=== PATIENT | male | born 1955 | race Caucasian/White ===

== ENCOUNTER 2017-08-14 14:02 | Observation (INO) | payer MEDICAID, OTHER ==
[~2017-08-14] VITALS: Ht 175.3 cm; Wt 100.0 kg
[2017-08-14] VITALS (9 sets, daily range): BP systolic 104–124; BP diastolic 65–81; PULSE 62–104; RESP 16–18; TEMP 97.6–98.2; O2SAT 98–99
[~2017-08-14 14:02] MED LIST: CLON0.1T PO; HYDR12.57 PO; PAXI40TA PO; SERO100T PO; TRAM50TA PO; TRAZ100 PO
[2017-08-14] MEDS ORDERED: LISI-515 PO (14:23)
[2017-08-14] MEDS ORDERED: SERO300T PO (14:23)
[2017-08-14] MEDS ORDERED: TRAZ100T10 PO (14:23)
[2017-08-14] MEDS ORDERED: SODIUM CHLOR 0.9% 1000 ML INJ 1,000 ML IV ONE (14:49)
[2017-08-14] MEDS ORDERED: SODIUM CHLORIDE 0.9% FLUSH 10 ML FLUSH IVF PRN (15:00)
[2017-08-14 15:35] LABS: BASOPHIL % 0.6 % (0.0-2.0); EOSINOPHIL # 0.2 TH/MM3 (0-0.4); EOSINOPHIL % 2.5 % (0.0-4.0); HEMATOCRIT 41.1 % (39.0-51.0); HEMOGLOBIN 14.1 GM/DL (13.0-17.0); LYMPH % 29.9 % (9.0-44.0); LYMPHOCYTE # 2.4 TH/MM3 (1.0-4.8); MEAN CELL VOLUME 91.8 FL (80.0-100.0); MEAN CORPUSCULAR HEMOGLOBIN 31.6 PG (27.0-34.0); MEAN CORPUSCULAR HGB CONC 34.4 % (32.0-36.0); MEAN PLATELET VOLUME 8.3 FL (7.0-11.0); MONO % 5.2 % (0.0-8.0); MONOCYTE # 0.4 TH/MM3 (0-0.9); NEUT % 61.8 % (16.0-70.0); PLATELET COUNT 230 TH/MM3 (150-450); RED BLOOD COUNT 4.47 MIL/MM3 (4.50-5.90); RED CELL DISTRIBUTION WIDTH 12.6 % (11.6-17.2); WHITE BLOOD COUNT 8.2 TH/MM3 (4.0-11.0)
[2017-08-14 16:03] LABS: BILIRUBIN, URINE NEG (NEG); BLOOD, URINE NEG (NEG); GLUCOSE,URINE NEG (NEG); HYALINE CAST, URINE 19 /lpf (RARE); KETONE, URINE NEG (NEG); MUCUS URINE FEW /lpf (OCC); NITRITE,URINE NEG (NEG); PH, URINE 5.5 (5.0-8.5); SPERM, URINE RARE; URINE COLOR YELLOW (YELLW/STRAW); URINE LEUKOCYTE ESTERASE NEG (NEG)
[2017-08-14 16:08] LABS: ALKALINE PHOSPHATASE 60 U/L (45-117); TOTAL BILIRUBIN ADULT 0.2 MG/DL (0.2-1.0); TOTAL PROTEIN 5.9 GM/DL (6.4-8.2); TROPONIN I LESS THAN 0.02 NG/ML (0.02-0.05)
[2017-08-14 16:14] LABS: ALBUMIN 3.4 GM/DL (3.4-5.0); ALT (GPT) 33 U/L (12-78); AST (GOT) 17 U/L (15-37); BICARBONATE 23.5 MEQ/L (21.0-32.0); BLOOD UREA NITROGEN 17 MG/DL (7-18); CALCIUM 7.6 MG/DL (8.5-10.1); CHLORIDE 108 MEQ/L (98-107); CREATININE 1.13 MG/DL (0.60-1.30); GLOMERULAR FILTRATION RATE 66 ML/MIN (>89); GLUCOSE,RANDOM 185 MG/DL (74-106); SODIUM (NA) 141 MEQ/L (136-145)
--- NOTE | 2017-08-14 18:17 | PD ---
HPI Chief Complaint: Dizziness Time Seen by Provider: 14:23 Travel History International Travel<30 days: No Contact w/Intl Traveler<30days: No Traveled to known affect area: No History of Present Illness HPI This is a 61-year-old male who has a history smoking and hypertension who presents to the emergency department with an episode earlier today where he felt like he was going to pass out. He had pressure in his left chest, constant , lasting for several minutes associated with shortness of breath and diaphoresis. He felt like he was going to pass out. When EMS arrived at his house they took his blood pressure and he was in the 70s systolic. He received some IV hydration with the VAC and then his blood pressure normalized. The patient is in a penitentiary house due to a history of alcoholism. He says he has not drink any alcohol in a year and a half. He says he has not had a stress test 10 years. He does take clonidine for his blood pressure but he took it very early this morning several hours before the onset of his symptoms. His doctors have advised him to have strict blood pressure control because he has a history of aneurysm. PFSH Past Medical History Arthritis: Yes Asthma: Yes Autoimmune Disease: No Anxiety: Yes Depression: Yes Heart Rhythm Problems: Yes (Heart murmur as child) Cancer: No Cardiovascular Problems: Yes High Cholesterol: No Chest Pain: Yes COPD: Yes Cerebrovascular Accident: No Diminished Hearing: No Endocrine: No Gastrointestinal Disorders: Yes Genitourinary: No Headaches: Yes Hepatitis: Yes (HEP C->INTERFERON->REMISSION-2000) Hypertension: Yes Immune Disorder: No Musculoskeletal: Yes Neurologic: Yes Psychiatric: Yes Reproductive: No Respiratory: Yes Immunizations Current: No Migraines: No Seizures: No Tetanus Vaccination: < 5 Years Influenza Vaccination: Yes ?: Not Past Surgical History Joint Replacement: Yes (Total right knee) Neurologic Surgery: Yes (brain surgery repair of Aneurysms as of 03-25-16) Other Surgery: Yes Social History Alcohol Use: No (Quit) Tobacco Use: No (1 pack per day) Substance Use: No Allergies-Medications (Allergen,Severity, Reaction): Coded Allergies: No Known Allergies (Verified Allergy, Unknown, 08/14/17) Reported Meds & Prescriptions Reported Meds & Active Scripts Active Reported Seroquel (Quetiapine Fumarate) 300 Mg Tab 300 Mg PO HS Lisinopril 20 Mg Tab 20 Mg PO DAILY Trazodone (Trazodone HCl) 100 Mg Tablet 100 Mg PO HS Clonidine (Clonidine HCl) 0.1 Mg Tab 0.1 Mg PO DAILY Review of Systems Except as stated in HPI: all other systems reviewed are Neg Physical Exam Narrative GENERAL:Well appearing, no acute distress SKIN: Focused skin assessment warm and dry. HEAD: Atraumatic. Normocephalic. EYES: Pupils equal and round. No injection or drainage. ENT: Moist mucous membranes NECK: Trachea midline. CARDIOVASCULAR: Tachycardic. No murmur appreciated. RESPIRATORY: Clear to auscultation. Breath sounds equal bilaterally. GASTROINTESTINAL: Abdomen soft, non-tender, nondistended. MUSCULOSKELETAL: No obvious deformities. NEUROLOGICAL: Awake and alert. No obvious cranial nerve deficits. Moving all extremities. PSYCHIATRIC: Appropriate mood and affect; insight and judgment normal. Data Data Last Documented VS Vital Signs Date Time Temp Pulse Resp B/P (MAP) Pulse Ox O2 Delivery O2 Flow Rate FiO2 08/14/17 18:23 97.7 71 18 104/75 (85) 98 Nasal Cannula 2.00 Orders Orders Electrocardiogram (08/14/17 14:49) Complete Blood Count With Diff (08/14/17 14:49) Comprehensive Metabolic Panel (08/14/17 14:49) Troponin I (08/14/17 14:49) Urinalysis - C+S If Indicated (08/14/17 14:49) Ecg Monitoring (08/14/17 14:49) Iv Access Insert/Monitor (08/14/17 14:49) Oximetry (08/14/17 14:49) Sodium Chloride 0.9% Flush (Ns Flush) (08/14/17 15:00) Sodium Chlor 0.9% 1000 Ml Inj (Ns 1000 M (08/14/17 14:49) Thyroid Stimulating Hormone (08/14/17 14:49) Troponin I (08/14/17 17:15) Chest, Single Ap (08/14/17 ) Aspirin Chew (Aspirin Chew) (08/14/17 18:30) Admit Order (Ed Use Only) (08/14/17 18:47) Labs Laboratory Tests Test 08/14/17 14:15 08/14/17 15:35 08/14/17 17:15 White Blood Count 8.2 TH/MM3 Red Blood Count 4.47 MIL/MM3 Hemoglobin 14.1 GM/DL Hematocrit 41.1 % Mean Corpuscular Volume 91.8 FL Mean Corpuscular Hemoglobin 31.6 PG Mean Corpuscular Hemoglobin Concent 34.4 % Red Cell Distribution Width 12.6 % Platelet Count 230 TH/MM3 Mean Platelet Volume 8.3 FL Neutrophils (%) (Auto) 61.8 % Lymphocytes (%) (Auto) 29.9 % Monocytes (%) (Auto) 5.2 % Eosinophils (%) (Auto) 2.5 % Basophils (%) (Auto) 0.6 % Neutrophils # (Auto) 5.0 TH/MM3 Lymphocytes # (Auto) 2.4 TH/MM3 Monocytes # (Auto) 0.4 TH/MM3 Eosinophils # (Auto) 0.2 TH/MM3 Basophils # (Auto) 0.0 TH/MM3 CBC Comment DIFF FINAL Differential Comment Blood Urea Nitrogen 17 MG/DL Creatinine 1.13 MG/DL Random Glucose 185 MG/DL Total Protein 5.9 GM/DL Albumin 3.4 GM/DL Calcium Level 7.6 MG/DL Alkaline Phosphatase 60 U/L Aspartate Amino Transf (AST/SGOT) 17 U/L Alanine Aminotransferase (ALT/SGPT) 33 U/L Total Bilirubin 0.2 MG/DL Sodium Level 141 MEQ/L Potassium Level 3.3 MEQ/L Chloride Level 108 MEQ/L Carbon Dioxide Level 23.5 MEQ/L Anion Gap 10 MEQ/L Estimat Glomerular Filtration Rate 66 ML/MIN Troponin I LESS THAN 0.02 NG/ML 0.06 NG/ML Thyroid Stimulating Hormone 3rd Gen 1.820 uIU/ML Urine Color YELLOW Urine Turbidity CLEAR Urine pH 5.5 Urine Specific [place] 1.013 Urine Protein NEG mg/dL Urine Glucose (UA) NEG mg/dL Urine Ketones NEG mg/dL Urine Occult Blood NEG Urine Nitrite NEG Urine Bilirubin NEG Urine Urobilinogen LESS THAN 2.0 MG/DL Urine Leukocyte Esterase NEG Urine RBC 3 /hpf Urine WBC 1 /hpf Urine Hyaline Casts 19 /lpf Urine Mucus FEW /lpf Urine Sperm RARE Microscopic Urinalysis Comment CULT NOT INDICATED MDM Medical Decision Making Medical Screen Exam Complete: Yes Emergency Medical Condition: Yes Interpretation(s) ekg: sinus tachycardia, q waves in the inferior leads No leukocytosis mild hypokalemia troponin increased from .02 to .06 Differential Diagnosis Acute coronary syndrome, dehydration, vasovagal syncope, orthostatic hypotension , arrhythmia Narrative Course This is a 61-year-old male who presents to the emergency department with lightheadedness and chest pain that started prior to arrival. He was placed on a monitor and an IV was established. EKG demonstrates some Q waves in the inferior leads. Labs demonstrate an initial troponin of 0.02 which increased on repeat to .06. I think patient requires observation for serial cardiac enzymes as his description of his symptoms is concerning for acute coronary syndrome. Physician Communication Physician Communication Discussed with Dr. Tello Diagnosis Primary Impression: Chest pain Qualified Codes: R07.9 - Chest pain, unspecified Admitting Information Admitting Physician Requests: Observation Honey Huynh MD Aug 14, 2017 18:17
[2017-08-14] MEDS ORDERED: ASPIRIN 81 MG CHEW TAB CHEW ONE (18:30)
[2017-08-14] MEDS ORDERED: IOHEXOL 350 MG/ML 100 ML BTL (for Cath Lab) OTHER ONE (18:50)
--- NOTE | 2017-08-14 18:54 | RADRPT ---
EXAM DATE/TIME: 08/14/2017 18:31 [facility] COMPARISON: CHEST SINGLE AP, March 26, 2016, 13:59. INDICATIONS : Chest pain started at 11 am. MEDICAL HISTORY : Aneurysm, intracranial. Cardiovascular disease Hypertension.Hep C COPD SURGICAL HISTORY : Craniotomy. Total knee replacement, left.Anuersym clipping. ENCOUNTER: Initial ACUITY: 1 day PAIN SCORE: 1/10 LOCATION: Bilateral chest FINDINGS: A single view of the chest demonstrates the lungs to be symmetrically aerated without evidence of mas s, infiltrate or effusion. The cardiomediastinal contours are unremarkable. Osseous structures are intact. CONCLUSION: No acute disease. Howie Isaebl Jr., MD on August 14, 2017 at 18:51 Board Certified Radiologist. This report was verified electronically.
[2017-08-14] MEDS ORDERED: ONDANSETRON HCL 4 MG/2 ML VIAL IVP PRN (19:00)
[2017-08-14] MEDS ORDERED: BISACODYL 10 MG SUPP RECTAL PRN (19:00)
[2017-08-14] MEDS ORDERED: ACETAMINOPHEN 325 MG TAB PO PRN (19:00)
[2017-08-14] MEDS ORDERED: MAGNESIUM HYDROXIDE SUSP 30 ML CUP PO PRN (19:00)
[2017-08-14] MEDS ORDERED: LACTULOSE SYRUP 20 GM/30 ML CUP PO PRN (19:00)
[2017-08-14] MEDS ORDERED: NITROGLYCERIN 2% OINT 1 GM PACKET TOPICAL PRN (19:00)
[2017-08-14] MEDS ORDERED: SODIUM CHLORIDE 0.9% FLUSH 10 ML FLUSH IV FLUSH PRN (19:00)
[2017-08-14] MEDS ORDERED: MORPHINE SULFATE 2 MG/ML INJ IV PUSH PRN (19:00)
[2017-08-14] MEDS ORDERED: SENNOSIDES 8.6 MG TAB PO PRN (19:00)
--- NOTE | 2017-08-14 19:03 | HHI.HP ---
[facility] Service [facility] Primary Care Physician No Primary Care Physician Admission Diagnosis chest pain Diagnoses: (1) Near syncope Diagnosis: Principal (2) Hypotension Diagnosis: Principal (3) Elevated troponin Diagnosis: Principal (4) Hypokalemia Diagnosis: Principal (5) Tobacco abuse Diagnosis: Principal Travel History International Travel<30 Days: No Contact w/Intl Traveler <30 Da: No Traveled to Known Affected Are: No History of Present Illness This is a 61-year-old male with a PMH of Anxiety, Depression, HTN, Hyperlipidemia, Hepatitis C, h/o Cerebral Aneurysm s/p Clipping, h/o Alcohol Abuse in Remission and Tobacco Abuse who was brought to the ER after near syncopal event. Pt states he was having lunch when he had sudden episode of intense lightheadedness/dizziness followed by near syncopal event. No h/o similar symptoms. BP 70's systolic upon EMS arrival w/ improvement after IVF. Per pt he lives in a detention house w/ 7 other residents who have all been sick lately w/ cold-type symptoms. Denies fever, chills, cough or chest pain. On arrival, BP 118/76, HR 104, O2 sat 98% on 2L NC, Afebrile. CBC essentially unremarkable. K+ 3.3. GFR 66. Troponin 0.02, repeat troponin 0.06. No complaints of chest pain. UA negative. CXR with no acute findings. Review of Systems Except as stated in HPI: all other systems reviewed are Neg ROS: 14 point review of systems otherwise negative. Past Family Social History Past Medical History PMH: Anxiety, Depression, HTN, Hyperlipidemia, Hepatitis C, h/o Cerebral Aneurysm s/p Clipping, h/o Alcohol Abuse in Remission and Tobacco Abuse Past Surgical History PAST SURGICAL HISTORY: Total Knee Replacement, Cerebral Aneurysm Clips Allergies: Coded Allergies: No Known Allergies (Verified Allergy, Unknown, 08/14/17) Family History PAST FAMILY HISTORY: Reviewed. No h/o DM or CAD Social History PAST SOCIAL HISTORY: History of alcohol abuse, sober for 8 years. Smokes 1ppd. Negative for drugs. Physical Exam Vital Signs Vital Signs Date Time Temp Pulse Resp B/P (MAP) Pulse Ox O2 Delivery O2 Flow Rate FiO2 08/14/17 18:55 71 18 118/81 (93) 98 Nasal Cannula 2.00 08/14/17 18:23 97.7 71 18 104/75 (85) 98 Nasal Cannula 2.00 08/14/17 17:16 97.8 87 16 105/65 (78) 98 Nasal Cannula 2.00 08/14/17 16:13 98.0 100 17 124/73 (90) 99 Nasal Cannula 2.00 08/14/17 14:51 18 98 Nasal Cannula 2.00 08/14/17 14:24 108 18 98 Nasal Cannula 2.00 08/14/17 14:20 98.2 104 18 118/76 (90) 98 Nasal Cannula 2.00 Physical Exam PE: GENERAL: Very pleasant middle-aged white male in no acute distress. HEENT: PERRLA, EOMI. No scleral icterus or conjunctival pallor. No lid lag or facial droop. CARDIOVASCULAR: Regular rate and rhythm. No obvious murmurs to auscultation. No chest tenderness to palpation. RESPIRATORY: No obvious rhonchi or wheezing. Clear to auscultation. Breath sounds equal bilaterally. GASTROINTESTINAL: Abdomen soft, non-tender, nondistended. BS normal. MUSCULOSKELETAL: Extremities without clubbing, cyanosis, or edema. No obvious deformities. NEUROLOGICAL: Awake, alert and oriented x4. No focal neurologic deficits. Moving both upper and lower extremities spontaneously. Laboratory Laboratory Tests Test 08/14/17 14:15 08/14/17 15:35 08/14/17 17:15 White Blood Count 8.2 Red Blood Count 4.47 Hemoglobin 14.1 Hematocrit 41.1 Mean Corpuscular Volume 91.8 Mean Corpuscular Hemoglobin 31.6 Mean Corpuscular Hemoglobin Concent 34.4 Red Cell Distribution Width 12.6 Platelet Count 230 Mean Platelet Volume 8.3 Neutrophils (%) (Auto) 61.8 Lymphocytes (%) (Auto) 29.9 Monocytes (%) (Auto) 5.2 Eosinophils (%) (Auto) 2.5 Basophils (%) (Auto) 0.6 Neutrophils # (Auto) 5.0 Lymphocytes # (Auto) 2.4 Monocytes # (Auto) 0.4 Eosinophils # (Auto) 0.2 Basophils # (Auto) 0.0 CBC Comment DIFF FINAL Differential Comment Blood Urea Nitrogen 17 Creatinine 1.13 Random Glucose 185 Total Protein 5.9 Albumin 3.4 Calcium Level 7.6 Alkaline Phosphatase 60 Aspartate Amino Transf (AST/SGOT) 17 Alanine Aminotransferase (ALT/SGPT) 33 Total Bilirubin 0.2 Sodium Level 141 Potassium Level 3.3 Chloride Level 108 Carbon Dioxide Level 23.5 Anion Gap 10 Estimat Glomerular Filtration Rate 66 Troponin I LESS THAN 0.02 0.06 Thyroid Stimulating Hormone 3rd Gen 1.820 Urine Color YELLOW Urine Turbidity CLEAR Urine pH 5.5 Urine Specific [place] 1.013 Urine Protein NEG Urine Glucose (UA) NEG Urine Ketones NEG Urine Occult Blood NEG Urine Nitrite NEG Urine Bilirubin NEG Urine Urobilinogen LESS THAN 2.0 Urine Leukocyte Esterase NEG Urine RBC 3 Urine WBC 1 Urine Hyaline Casts 19 Urine Mucus FEW Urine Sperm RARE Microscopic Urinalysis Comment CULT NOT INDICATED Result Diagram: 08/14/17 1415 08/14/17 1415 Caprini VTE Risk Assessment Caprini VTE Risk Assessment: No/Low Risk (score <= 1) Caprini Risk Assessment Model Point Value = 1 Point Value = 2 Point Value = 3 Point Value = 5 Age 41-60 Minor surgery BMI > 25 kg/m2 Swollen legs Varicose veins or History of unexplained or recurrent spontaneous Oral contraceptives or hormone replacement Sepsis (< 1 month) Serious lung disease, including pneumonia (< 1 month) Abnormal pulmonary function Acute myocardial infarction Congestive heart failure (< 1 month) History of inflammatory bowel disease Medical patient at bed rest Age 61-74 Arthroscopic surgery Major open surgery (> 45 min) Laparoscopic surgery (> 45 min) Malignancy Confined to bed (> 72 hours) Immobilizing plaster cast Central venous access Age >= 75 History of VTE Family history of VTE Factor V Leiden Prothrombin [id number] Lupus anticoagulant Anticardiolipin antibodies Elevated serum homocysteine Heparin-induced thrombocytopenia Other congenital or acquired thrombophilia Stroke (< 1 month) Elective arthroplasty Hip, pelvis, or leg fracture Acute spinal cord injury (< 1 month) Prophylaxis Regimen Total Risk Factor Score Risk Level Prophylaxis Regimen 0-1 Low Early ambulation 2 Moderate Order ONE of the following: *Sequential Compression Device (SCD) *Heparin 5000 units SQ BID 3-4 Higher Order ONE of the following medications: *Heparin 5000 units SQ TID *Enoxaparin/Lovenox 40 mg SQ daily (WT < 150 kg, CrCl > 30 mL/min) *Enoxaparin/Lovenox 30 mg SQ daily (WT < 150 kg, CrCl > 10-29 mL/min) *Enoxaparin/Lovenox 30 mg SQ BID (WT < 150 kg, CrCl > 30 mL/min) AND/OR *Sequential Compression Device (SCD) 5 or more Highest Order ONE of the following medications: *Heparin 5000 units SQ TID (Preferred with Epidurals) *Enoxaparin/Lovenox 40 mg SQ daily (WT < 150 kg, CrCl > 30 mL/min) *Enoxaparin/Lovenox 30 mg SQ daily (WT < 150 kg, CrCl > 10-29 mL/min) *Enoxaparin/Lovenox 30 mg SQ BID (WT < 150 kg, CrCl > 30 mL/min) AND *Sequential Compression Device (SCD) Assessment and Plan Problem List: (1) Near syncope ICD Code: R55 - Syncope and collapse (2) Hypotension ICD Code: I95.9 - Hypotension, unspecified (3) Elevated troponin ICD Code: R74.8 - Abnormal levels of other serum enzymes (4) Hypokalemia ICD Code: E87.6 - Hypokalemia (5) Tobacco abuse ICD Code: Z72.0 - Tobacco use Assessment and Plan A/P: 1. Near Syncope: Likely secondary to dehydration/hypovolemia. Admit for observation, place on telemetry, IVF for hydration, R/o ACS to eval for possible underlying ischemia. Check Echo to eval for valvular abnormality/ cardiomyopathy. 2. Hypotension: BP 70's upon EMS arrival, likely secondary to dehydration, s/ p IVF w/ improvement, BP currently 104/75, HR 71. Monitor BP closely. Hold home antihypertensives at this time, will resume once BP stable. 3. Elevated Trop: Initial trop 0.02, repeat trop elevated to 0.06. Possibly due to demand ischemia from hypotension. No c/o chest pain. EKG w/ no acute ischemia. R/o ACS. Start ASA, Statin, hold B-gregoria in light of hypotension. Consult Cardiology for further recommendations. CXR w/ no acute findings, images reviewed by me. 4. Hypokalemia: K+ 3.3, will replace w/ 40mEq K+, recheck labs in am. 5. Tobacco Abuse: Pt counselled. Ativan prn. No NicoDerm to avoid vasoconstriction. 6. DVT Prophylaxis: SCD/Teds. 7. Social work for d/c planning as needed. 8. Labs/records/imaging reviewed by me. Case discussed at length w/ day physician. Sanjuanita Brian MD Aug 14, 2017 19:03
[2017-08-14] MEDS: SODIUM CHLOR 0.9% 1000 ML INJ 1,000 ML IV SCH (19:24)
[2017-08-14] MEDS ORDERED: POTASSIUM CHLORIDE 20 MEQ CONTROLLED RELEASE TAB PO ONE (19:45)
[2017-08-14] MEDS ORDERED: LORazepam 1 MG TAB PO PRN (20:15)
[2017-08-14] MEDS: SODIUM CHLORIDE 0.9% FLUSH 10 ML FLUSH IV FLUSH SCH (21:00)
[2017-08-14] MEDS: DOCUSATE SODIUM 50 MG/SENNA 8.6 MG TAB PO SCH (21:00)
[2017-08-14] MEDS: QUEtiapine FUMARATE 300 MG TAB PO SCH (23:49)
[2017-08-14] MEDS: traZODone HCL 100 MG TAB PO SCH (23:50)
[2017-08-15] VITALS (11 sets, daily range): BP systolic 100–139; BP diastolic 62–89; PULSE 56–75; RESP 17–20; TEMP 97.6–98.3; O2SAT 95–97
[2017-08-15] MEDS: SODIUM CHLOR 0.9% 1000 ML INJ 1,000 ML IV SCH ×2 (05:57→15:00)
[2017-08-15] MEDS ORDERED: DEXTROSE 50% IN WATER 50 ML VIAL(D50) IV PUSH PRN (07:45)
[2017-08-15] MEDS ORDERED: GLUCAGON 1 MG/ML VIAL OTHER PRN (07:45)
[2017-08-15] MEDS: INSULIN ASPART SUPPLEMENTAL SCALE SQ SCH ×4 (08:00→21:00)
[2017-08-15 08:48] LABS: AUTOMATED NEUTROPHIL # 6.6 TH/MM3 (1.8-7.7); BASOPHIL # 0.1 TH/MM3 (0-0.2); BASOPHIL % 0.6 % (0.0-2.0); EOSINOPHIL # 0.2 TH/MM3 (0-0.4); EOSINOPHIL % 2.4 % (0.0-4.0); HEMATOCRIT 42.4 % (39.0-51.0); HEMOGLOBIN 14.9 GM/DL (13.0-17.0); LYMPH % 21.3 % (9.0-44.0); MEAN CELL VOLUME 92.9 FL (80.0-100.0); MEAN CORPUSCULAR HEMOGLOBIN 32.6 PG (27.0-34.0); MEAN CORPUSCULAR HGB CONC 35.1 % (32.0-36.0); MEAN PLATELET VOLUME 8.6 FL (7.0-11.0); MONO % 6.8 % (0.0-8.0); MONOCYTE # 0.7 TH/MM3 (0-0.9); NEUT % 68.9 % (16.0-70.0); PLATELET COUNT 267 TH/MM3 (150-450); RED BLOOD COUNT 4.57 MIL/MM3 (4.50-5.90); RED CELL DISTRIBUTION WIDTH 12.6 % (11.6-17.2); WHITE BLOOD COUNT 9.6 TH/MM3 (4.0-11.0)
[2017-08-15 09:11] LABS: ALBUMIN 3.6 GM/DL (3.4-5.0); ALKALINE PHOSPHATASE 62 U/L (45-117); ALT (GPT) 31 U/L (12-78); AST (GOT) 19 U/L (15-37); BICARBONATE 22.7 MEQ/L (21.0-32.0); BLOOD UREA NITROGEN 13 MG/DL (7-18); CALCIUM 8.5 MG/DL (8.5-10.1); CHLORIDE 112 MEQ/L (98-107); CHOLESTEROL 203 MG/DL (120-200); CHOLESTEROL/ HDL RATIO 6.59 RATIO; CREATININE 0.97 MG/DL (0.60-1.30); GLOMERULAR FILTRATION RATE 79 ML/MIN (>89); GLUCOSE,RANDOM 90 MG/DL (74-106); HDL CHOLESTEROL 30.8 MG/DL (40.0-60.0); LDL CHOLESTEROL 123 MG/DL (0-99); SODIUM (NA) 142 MEQ/L (136-145); TOTAL BILIRUBIN ADULT 0.3 MG/DL (0.2-1.0); TOTAL PROTEIN 6.2 GM/DL (6.4-8.2); TRIGLYCERIDES 244 MG/DL (42-150); TROPONIN I LESS THAN 0.02 NG/ML (0.02-0.05)
--- NOTE | 2017-08-15 09:42 | HHI.PR ---
Subjective Remarks Patient in nad. No n/v/d/c. Denies chest pain or sob. no lightheadedness, sob palpitations, diaphoresis. Plan for stress test Objective Vitals Vital Signs Date Time Temp Pulse Resp B/P (MAP) Pulse Ox O2 Delivery O2 Flow Rate FiO2 08/15/17 08:00 98.3 71 20 122/83 (96) 95 123/80 (94) 125/85 (98) 08/15/17 04:00 68 08/15/17 03:33 98.1 58 17 100/62 (75) 95 08/15/17 00:29 60 08/14/17 23:04 62 08/14/17 22:52 97.6 76 16 109/78 (88) 98 08/14/17 20:29 98.1 66 16 120/79 (93) 99 08/14/17 20:25 08/14/17 18:55 71 18 118/81 (93) 98 Nasal Cannula 2.00 08/14/17 18:23 97.7 71 18 104/75 (85) 98 Nasal Cannula 2.00 08/14/17 17:16 97.8 87 16 105/65 (78) 98 Nasal Cannula 2.00 08/14/17 16:13 98.0 100 17 124/73 (90) 99 Nasal Cannula 2.00 08/14/17 14:51 18 98 Nasal Cannula 2.00 08/14/17 14:24 108 18 98 Nasal Cannula 2.00 08/14/17 14:20 98.2 104 18 118/76 (90) 98 Nasal Cannula 2.00 I/O 08/14/17 08/14/17 08/14/17 08/15/17 08/15/17 08/15/17 07:00 15:00 23:00 07:00 15:00 23:00 Intake Total 1000 ml Output Total 1100 ml 500 ml Balance -100 ml -500 ml Intake IV Total 1000 ml Output Urine Total 1100 ml 500 ml # Voids 2 1 # Bowel Movements 0 Result Diagram: 08/15/17 0735 08/15/17 0735 Imaging Last Impressions Chest X-Ray 08/14/17 0000 Signed Impressions: Service Date/Time: Monday, August 14, 2017 18:31 - CONCLUSION: No acute disease. Howie Isabel Jr., MD Objective Remarks GENERAL: Very pleasant middle-aged white male in no acute distress. CARDIOVASCULAR: Regular rate and rhythm. No obvious murmurs to auscultation. No chest tenderness to palpation. RESPIRATORY: No obvious rhonchi or wheezing. Clear to auscultation. Breath sounds equal bilaterally. GASTROINTESTINAL: Abdomen soft, non-tender, nondistended. BS normal. MUSCULOSKELETAL: Extremities without clubbing, cyanosis, or edema. No obvious deformities. NEUROLOGICAL: Awake, alert and oriented x4. No focal neurologic deficits. Moving both upper and lower extremities spontaneously. A/P Problem List: (1) Near syncope ICD Code: R55 - Syncope and collapse (2) Hypotension ICD Code: I95.9 - Hypotension, unspecified (3) Elevated troponin ICD Code: R74.8 - Abnormal levels of other serum enzymes (4) Hypokalemia ICD Code: E87.6 - Hypokalemia (5) Tobacco abuse ICD Code: Z72.0 - Tobacco use Assessment and Plan Near Syncope: Likely secondary to dehydration/hypovolemia. Admit for observation, place on telemetry, IVF for hydration, R/o ACS to eval for possible underlying ischemia. Carotid US normal. Echo normal EF, no valvulopathy Hypotension on admission: BP 70's upon EMS arrival, likely secondary to dehydration, s/p IVF w/ improvement, BP currently 104/75, HR 71. Monitor BP closely. Hold home antihypertensives at this time, will resume once BP stable. Elevated Trop: Initial trop 0.02, repeat trop elevated to 0.06. Trending down 0.04--> 0.02. Possibly due to demand ischemia from hypotension. No c/o chest pain. EKG w/ no acute ischemia. R/o ACS. Start ASA, Statin, hold B-gregoria in light of hypotension. Consult Cardiology , appreciate recommendations. CXR w/ no acute findings, images reviewed by me. Stress test reviewed with LAD territory ischemia , cardiology ff 2D ECHO with normal EF 60% Hypokalemia: K+ 3.3, will replace w/ 40mEq K+, recheck labs in am. Tobacco Abuse: Pt counselled. Ativan prn. No NicoDerm to avoid vasoconstriction. DVT Prophylaxis: SCD/Teds. CM consulted for d/c planning as needed. Stress test reviewed with LAD territory ischemia , cardiology ff Yen Watkins MD Aug 15, 2017 09:42
[2017-08-15] MEDS: DOCUSATE SODIUM 50 MG/SENNA 8.6 MG TAB PO SCH ×2 (09:53→21:00)
[2017-08-15] MEDS: SODIUM CHLORIDE 0.9% FLUSH 10 ML FLUSH IV FLUSH SCH ×2 (09:53→21:00)
[2017-08-15] MEDS: ASPIRIN EC 81 MG TABEC PO SCH (09:53)
[2017-08-15] MEDS: PRAVASTATIN SOD 40 MG TAB PO SCH (09:53)
[2017-08-15] MEDS ORDERED: PNEUMOCOCCAL POLYVALENT INJ 25 MCG/0.5 ML SYR IM ONE (10:00)
--- NOTE | 2017-08-15 10:03 | RADRPT ---
EXAM DATE/TIME: 08/15/2017 08:36 [facility] COMPARISON: No previous studies available for comparison. INDICATIONS : Syncope. MEDICAL HISTORY : Hypertension. Chronic obstructive pulmonary disease. Arthritis. Asthma. Osteoporosis. Liver disease. Hepatitis C. SURGICAL HISTORY : Total knee replacement, right. Aneurysm repair. ENCOUNTER: Initial ACUITY: 1 day PAIN SCORE: 2/10 LOCATION: Bilateral neck PEAK SYSTOLIC VELOCITIES (cm/sec): ICA/CCA RATIO: Right: 1.7 Left: 1.1 ICA: Right: 124 Left: 115 CCA: Right: 74 Left: 108 ECA: Right: 119 Left: 94 VERTEBRAL: Right: 62 antegrade Left: Not visualized. absent Elevated flow velocities and ICA/CCA ratios have been found to correlate with increased degrees of vessel stenosis, calculated as percentage of diameter relative to a normal segment of distal ICA/CCA FINDINGS: RIGHT CAROTID: No significant stenosis is visualized. The waveforms are within normal limits. LEFT CAROTID: No significant stenosis is visualized. The waveforms are within normal limits. VERTEBRAL ARTERIES: Antegrade flow is seen in both vertebral arteries. MISCELLANEOUS: None. CONCLUSION: The left vertebral artery is not visualized may be hypoplastic and otherwise unremarkable. Ron Martino MD on August 15, 2017 at 9:58 Board Certified Radiologist. This report was verified electronically.
--- NOTE | 2017-08-15 10:24 | RADRPT ---
EXAM DATE/TIME: 08/15/2017 10:11 [facility] COMPARISON: CT BRAIN W/O CONTRAST, April 23, 2016, 18:29. INDICATIONS : Dizziness and headache for two days. RADIATION DOSE: 41.41 CTDIvol (mGy) MEDICAL HISTORY : Aneurysm, intracranial. Hypertension. Cardiovascular disease SURGICAL HISTORY : Intracranial aneurysm repair. ENCOUNTER: Initial ACUITY: 2 days PAIN SCALE: 4/10 LOCATION: Bilateral cranial TECHNIQUE: Multiple contiguous axial images were obtained of the head. Using automated exposure control and adj ustment of the mA and/or kV according to patient size, radiation dose was kept as low as reasonably a chievable to obtain optimal diagnostic quality images. DICOM format image data is available electro nically for review and comparison. FINDINGS: There is no evidence for intracranial hemorrhage, mass effect, mass lesions, edema, or extra-axial fl uid collections. The visualized bony structures appear intact. The ventricles are normal size for t he patient's age. There are no signs of acute infarction for technique. There is evidence for prior aneurysm clipping and craniotomy not changed. Previously seen right subdural fluid collection has res olved. CONCLUSION: Unremarkable study. Ron Martino MD on August 15, 2017 at 10:20 Board Certified Radiologist. This report was verified electronically.
[2017-08-15] MEDS ORDERED: Budeson-Formot 160-4.5 Mcg Inh INH (11:27)
[2017-08-15] MEDS ORDERED: ECASA81 PO (11:27)
[2017-08-15] MEDS ORDERED: VENTAER INH (11:27)
[2017-08-15] MEDS ORDERED: PRAV40TA PO (11:27)
--- NOTE | 2017-08-15 12:00 | MB ---
cc: IAN HECK MD DATE OF CONSULTATION: 08/15/2017. REASON FOR CONSULTATION: Near syncope and elevated troponin. HISTORY OF PRESENT ILLNESS The patient is a very pleasant 61-year-old gentleman with a history of alcohol abuse, though he has been in remission for about a couple months as well as ongoing tobacco abuse. He presented with a near syncopal episode with hypotension and was brought to the hospital with very slightly elevated troponin. He is currently feeling better since he has been re-hydrated. He denies any current or prior chest pain, shortness breath or other episodes of lightheadedness, dizziness or syncope. PAST MEDICAL HISTORY: 1. Alcohol and tobacco abuse as above. 2. Anxiety. 3. Depression. 4. Hypertension. 5. Hyperlipidemia. 6. Hepatitis C. 7. Cerebral aneurysm status post clipping. CURRENT MEDICATIONS: 1. Aspirin 81 milligrams daily. 2. Pravachol 40 milligrams daily. ALLERGIES: NO KNOWN DRUG ALLERGIES. PHYSICAL EXAMINATION: VITAL SIGNS: Afebrile, pulse 71, respiratory rate 20, blood pressure 123/83, satting 95% on two liters. GENERAL: A pleasant obese gentleman in no distress. NECK: No jugular venous distention. LUNGS: Very decreased breath sounds in all patel with occasional wheezes. CARDIOVASCULAR: Regular rate and rhythm. No murmurs appreciated. ABDOMEN: Benign. EXTREMITIES: No edema. LABORATORY DATA: Sodium 142, potassium 4.3, chloride 112, bicarbonate 22.7, BUN 13, creatinine 0.9, glucose 90. Cardiac enzymes are essentially negative with one out of four readings in the indeterminate range of 0.06. EKGS: EKG shows sinus rhythm with a possible old inferior infarct. RADIOLOGICAL STUDIES: Chest x-ray shows no acute disease. IMPRESSION: 1. Indeterminate troponins. The patient's troponin is very nonspecific, but given his risk factors and somewhat abnormal EKG, I will have him undergo a nuclear stress test as well as an echocardiogram. If he feels better following re-hydration, and these tests are unremarkable, he could be discharged home after. Thank you again for the opportunity to participate in this patient's care. Ian Heck MD GERALDINE/CYNTHIA /10:54 AM /11:48 AM
[2017-08-15] MEDS: BUDESONIDE-FORMOTEROL 160/4.5 MCG INHALER INH SCH ×2 (12:20→21:31)
[2017-08-15] MEDS ORDERED: REGADENOSON INJ 0.4 MG/5 ML SYR ONE (12:53)
[2017-08-15] MEDS: RESP: ALBUTEROL 2.5 MG/IPRATROPIUM 0.5 MG NEB (SCH) NEB ×2 (14:00→19:14)
--- NOTE | 2017-08-15 14:47 | RADRPT ---
EXAM DATE/TIME: 08/15/2017 13:02 [facility] COMPARISON: No previous studies available for comparison. INDICATIONS : Near syncope with mid chest pain for one day. Atrial fibrillation. DOSE: 30.2 mCi Tc99m Myoview at stress. 10.1 mCi Tc99m Myoview at rest. 0.4 mg Lexiscan STRESS SYMPTOMS: Shortness of breath. EJECTION FRACTION: 59% MEDICAL HISTORY : Hypertension. Hepatitis C. ETOH abuse. SURGICAL HISTORY : None. ENCOUNTER: Initial ACUITY: 1 day PAIN SCALE: 3/10 LOCATION: Midsternal chest TECHNIQUE: The patient underwent pharmacologic stress with infusion of prescribed dose. Continuous ECG tracing was monitored during stress. Gated SPECT imaging was performed after stress and conventional SPECT i maging was performed at rest. The examination was performed on a SPECT/CT scanner, both attenuation and non-corrected datasets were reviewed. FINDINGS: DISTRIBUTION: The maximum perfused segment at stress is in the septal wall. PERFUSION STUDY: The pattern of perfusion at stress demonstrates reduction in perfusion to the anterior wall which ext ends from high to mid and low anterior wall and demonstrates redistribution the rest. There is a fixe d defect in the posterior basal and inferior wall. GATED STUDY: There is intact wall motion and thickening without hypokinetic or dyskinetic segments. CONCLUSION: Ischemia in the LAD territory. RISK CATEGORY: High (>3% Annual Mortality Rate) Ron Martino MD on August 15, 2017 at 14:44 Board Certified Radiologist. This report was verified electronically.
--- NOTE | 2017-08-15 14:49 | ECHRPT ---
Indication: Chest pain, unspecified CONCLUSIONS The left ventricular systolic function is normal with an estimated ejection fraction in the range of 60-65%. Wall thickness is measured at the upper limits of normal. Normal left ventricular size. There is mild tricuspid valve regurgitation. The estimated pulmonary arterial pressure is 30.5 mmHg. BP: / HR: 62 Rhythm: Sinus MEASUREMENTS (Male / Female) Normal Values Technical Quality:Fair 2D ECHO LV Diastolic Diameter PLAX 5.9 cm 4.2 - 5.9 / 3.9 - 5.3 cm LV Systolic Diameter PLAX 4.2 cm IVS Diastolic Thickness 1.3 cm 0.6 - 1.0 / 0.6 - 0.9 cm LVPW Diastolic Thickness 1.2 cm 0.6 - 1.0 / 0.6 - 0.9 cm LV Relative Wall Thickness 0.4 LVOT Diameter 2.3 cm M-MODE Aortic Root Diameter MM 3.5 cm LA Systolic Diameter MM 3.1 cm LA Ao Ratio MM 0.9 AV Cusp Separation MM 2.3 cm DOPPLER LV E' Septal Velocity 8.8 cm/s TR Peak Velocity 226.5 cm/s TR Peak Gradient 20.5 mmHg Right Atrial Pressure 10.0 mmHg Pulmonary Artery Systolic Pressu 30.5 mmHg Right Ventricular Systolic Press 30.5 mmHg PV Peak Velocity 128.0 cm/s PV Peak Gradient 6.6 mmHg FINDINGS LEFT VENTRICLE The left ventricular systolic function is normal with an estimated ejection fraction in the range of 60-65%. Wall thickness is measured at the upper limits of normal. Normal left ventricular size. RIGHT VENTRICLE Normal right ventricular size and systolic function. LEFT ATRIUM The left atrial size is normal. RIGHT ATRIUM The right atrial size is normal. ATRIAL SEPTUM Normal atrial septal thickness without atrial level shunting by limited color doppler interrogation. AORTA The aortic root and proximal ascending aorta are normal in size on limited imaging. MITRAL VALVE Structurally normal mitral valve. No mitral valve stenosis or regurgitation. AORTIC VALVE Trileaflet aortic valve. No aortic valve stenosis or regurgitation. TRICUSPID VALVE There is mild tricuspid valve regurgitation. The estimated pulmonary arterial pressure is 30.5 mmHg. PULMONARY VALVE No pulmonary valve regurgitation or stenosis. VESSELS The inferior vena cava is normal in size. PERICARDIUM No pericardial effusion. Ian Heck MD (Electronically Signed) Final Date:15 August 2017 14:48
--- NOTE | 2017-08-15 14:55 | EKG ---
Date Performed: 08/14/2017 Time Performed: 14:18:48 PTAGE: 61 years EKG: SINUS TACHYCARDIA POSSIBLE RIGHT VENTRICULAR CONDUCTION DELAY INFERIOR MYOCARDIAL INFARCTIO N ABNORMAL ECG Since PREVIOUS TRACING , no significant change noted PREVIOUS TRACIN03/22/2016 00.25 DOCTOR: Ian Heck Interpretating Date/Time 08/15/2017 14:55:05
[2017-08-15] MEDS: ACETAMINOPHEN/HYDROcodone 325 MG/5 MG TAB PO PRN (17:24)
[2017-08-15] MEDS: traZODone HCL 100 MG TAB PO SCH (21:31)
[2017-08-15] MEDS: QUEtiapine FUMARATE 300 MG TAB PO SCH (21:31)
[2017-08-16] VITALS (8 sets, daily range): BP systolic 96–149; BP diastolic 57–107; PULSE 56–83; RESP 17–18; TEMP 98.3–98.7; O2SAT 94–97
[2017-08-16] MEDS: SODIUM CHLOR 0.9% 1000 ML INJ 1,000 ML IV SCH ×3 (01:00→21:07)
[2017-08-16] MEDS: SODIUM CHLORIDE 0.9% FLUSH 10 ML FLUSH IV FLUSH SCH ×2 (07:59→21:06)
[2017-08-16] MEDS: DOCUSATE SODIUM 50 MG/SENNA 8.6 MG TAB PO SCH ×2 (07:59→21:06)
[2017-08-16] MEDS: PRAVASTATIN SOD 40 MG TAB PO SCH (07:59)
[2017-08-16] MEDS: ASPIRIN EC 81 MG TABEC PO SCH (07:59)
[2017-08-16] MEDS: ACETAMINOPHEN/HYDROcodone 325 MG/5 MG TAB PO PRN (07:59)
[2017-08-16] MEDS: INSULIN ASPART SUPPLEMENTAL SCALE SQ SCH ×4 (08:00→21:00)
[2017-08-16] MEDS: BUDESONIDE-FORMOTEROL 160/4.5 MCG INHALER INH SCH ×2 (08:00→21:00)
[2017-08-16] MEDS: RESP: ALBUTEROL 2.5 MG/IPRATROPIUM 0.5 MG NEB (SCH) NEB ×3 (08:49→19:57)
--- NOTE | 2017-08-16 11:01 | HHI.PR ---
Subjective Remarks In bed, appears in nad. Says she has no more sob and he is not wheezing, nebs helps. Patient had no chest pain overnight. No n/v/d/c. No diaphoresis. Objective Vitals Vital Signs Date Time Temp Pulse Resp B/P (MAP) Pulse Ox O2 Delivery O2 Flow Rate FiO2 08/16/17 08:52 96 21 08/16/17 07:05 98.4 71 18 144/90 (108) 97 143/107 (119) 143/106 (118) 08/16/17 03:01 98.5 56 17 96/74 (81) 96 08/15/17 22:56 98.3 75 17 110/76 (87) 96 08/15/17 19:35 98.3 72 17 129/70 (89) 97 120/80 (93) 130/81 (97) 08/15/17 19:17 96 08/15/17 16:00 56 08/15/17 16:00 97.6 66 20 139/89 (106) 97 08/15/17 12:05 64 08/15/17 12:00 97.6 69 20 115/81 (92) 95 I/O 08/15/17 08/15/17 08/15/17 08/16/17 08/16/17 08/16/17 07:00 15:00 23:00 07:00 15:00 23:00 Intake Total 720 ml Output Total 900 ml 1100 ml Balance -900 ml -380 ml Intake Oral 720 ml Output Urine Total 900 ml 1100 ml # Voids 1 3 Result Diagram: 08/15/17 0735 08/15/17 0735 Imaging Last Impressions Myocardial Perfusion Scan Nuc Med 08/15/17 0000 Signed Impressions: Service Date/Time: Tuesday, August 15, 2017 13:02 - CONCLUSION: Ischemia in the LAD territory. RISK CATEGORY: High (>3%% Annual Mortality Rate) Ron Martino MD Head CT 08/15/17 0000 Signed Impressions: Service Date/Time: Tuesday, August 15, 2017 10:11 - CONCLUSION: Unremarkable study. Ron Martino MD Carotid Artery Ultrasound 08/15/17 0000 Signed Impressions: Service Date/Time: Tuesday, August 15, 2017 08:36 - CONCLUSION: The left vertebral artery is not visualized may be hypoplastic and otherwise unremarkable. Ron Martino MD Chest X-Ray 08/14/17 0000 Signed Impressions: Service Date/Time: Monday, August 14, 2017 18:31 - CONCLUSION: No acute disease. Howie Isabel Jr., MD Objective Remarks GENERAL: Very pleasant middle-aged white male in no acute distress. CARDIOVASCULAR: Regular rate and rhythm. No obvious murmurs to auscultation. No chest tenderness to palpation. RESPIRATORY: No obvious rhonchi or wheezing. Clear to auscultation. Breath sounds equal bilaterally. GASTROINTESTINAL: Abdomen soft, non-tender, nondistended. BS normal. MUSCULOSKELETAL: Extremities without clubbing, cyanosis, or edema. No obvious deformities. NEUROLOGICAL: Awake, alert and oriented x4. No focal neurologic deficits. Moving both upper and lower extremities spontaneously. A/P Problem List: (1) Near syncope ICD Code: R55 - Syncope and collapse (2) Hypotension ICD Code: I95.9 - Hypotension, unspecified (3) Elevated troponin ICD Code: R74.8 - Abnormal levels of other serum enzymes (4) Hypokalemia ICD Code: E87.6 - Hypokalemia (5) Tobacco abuse ICD Code: Z72.0 - Tobacco use Assessment and Plan Near Syncope: Likely secondary to dehydration/hypovolemia. Admit for observation, place on telemetry, IVF for hydration, R/o ACS to eval for possible underlying ischemia. Carotid US normal. Echo normal EF, no valvulopathy Hypotension on admission: BP 70's upon EMS arrival, likely secondary to dehydration, s/p IVF w/ improvement, BP currently 104/75, HR 71. Monitor BP closely. Hold home antihypertensives at this time, will resume once BP stable. Elevated Trop: Initial trop 0.02, repeat trop elevated to 0.06. Trending down 0.04--> 0.02. Possibly due to demand ischemia from hypotension. No c/o chest pain. EKG w/ no acute ischemia. R/o ACS. Start ASA, Statin, hold B-gregoria in light of hypotension. Consult Cardiology , appreciate recommendations. CXR w/ no acute findings, images reviewed by me. Stress test reviewed with LAD territory ischemia , cardiology ff. Consult interventional cardiology for consideration of cardiac cath. 2D ECHO with normal EF 60% Hypokalemia: K+ 3.3, will replace w/ 40mEq K+, recheck labs in am. Tobacco Abuse: Pt counselled. Ativan prn. No NicoDerm to avoid vasoconstriction. DVT Prophylaxis: SCD/Teds. CM consulted for d/c planning as needed. Stress test reviewed with LAD territory ischemia , cardiology ff, interventional cardiology for poss cath Discussed with the patient, nurse, Dr Heck cardiology Yen Watkins MD Aug 16, 2017 11:01
[2017-08-16 12:41] LABS: HEMOGLOBIN A1C 5.7 % (4.3-6.0)
--- NOTE | 2017-08-16 14:20 | PD.CARD.PN ---
Subjective Subjective Remarks Pt feels well, no further lightheadedness, notes occasional sob but no cp Objective Medications Current Medications Medications (Trade) Dose Ordered Sig/Nadine Route Start Time Stop Time Status Last Admin Sodium Chloride 1,000 ml @ 100 mls/hr Q10H IV 08/14/17 19:00 08/15/17 05:57 (NS Flush) 2 ml UNSCH PRN IV FLUSH 08/14/17 19:00 (NS Flush) 2 ml BID IV FLUSH 08/14/17 21:00 08/16/17 07:59 (Zofran Inj) 4 mg Q6H PRN IVP 08/14/17 19:00 (Tylenol) 650 mg Q6H PRN PO 08/14/17 19:00 08/15/17 10:29 ([place] 5-325 Mg) 1 tab Q4H PRN PO 08/14/17 19:00 08/16/17 07:59 (Morphine Inj) 2 mg Q3H PRN IV PUSH 08/14/17 19:00 (Raine-Colace) 1 tab BID PO 08/14/17 21:00 08/16/17 07:59 (Milk Of Magnesia Liq) 30 ml Q12H PRN PO 08/14/17 19:00 (Senokot) 17.2 mg Q12H PRN PO 08/14/17 19:00 (Dulcolax Supp) 10 mg DAILY PRN RECTAL 08/14/17 19:00 (Lactulose Liq) 30 ml DAILY PRN PO 08/14/17 19:00 (Ecotrin Ec) 81 mg DAILY PO 08/15/17 09:00 08/16/17 07:59 (Pravachol) 40 mg DAILY PO 08/15/17 09:00 08/16/17 07:59 (Nitroglycerin 2% Oint) 0.5 inch Q6HR PRN TOPICAL 08/14/17 19:00 (SEROquel) 300 mg HS PO 08/14/17 21:00 08/15/17 21:31 (Desyrel) 100 mg HS PO 08/14/17 21:00 08/15/17 21:31 (Ativan) 1 mg Q8H PRN PO 08/14/17 20:15 (D50w (Vial) Inj) 50 ml UNSCH PRN IV PUSH 08/15/17 07:45 (Glucagon Inj) 1 mg UNSCH PRN OTHER 08/15/17 07:45 (NovoLOG SUPPLEMENTAL SCALE) 1 ACHS SLIDING SCALE SQ 08/15/17 08:00 08/16/17 12:00 (Duoneb Neb) 1 ampule Q6HR WHILE AWAKE NEB NEB 08/15/17 14:00 08/16/17 08:49 (Symbicort 160-4.5 Mcg Inh) 2 puff Q12HR INH 08/15/17 11:15 08/16/17 08:00 Vital Signs / I&O Vital Signs Date Time Temp Pulse Resp B/P (MAP) Pulse Ox O2 Delivery O2 Flow Rate FiO2 08/16/17 11:12 98.3 83 18 126/73 (90) 94 08/16/17 08:52 96 21 08/16/17 07:05 98.4 71 18 144/90 (108) 97 143/107 (119) 143/106 (118) 08/16/17 03:01 98.5 56 17 96/74 (81) 96 08/15/17 22:56 98.3 75 17 110/76 (87) 96 08/15/17 19:35 98.3 72 17 129/70 (89) 97 120/80 (93) 130/81 (97) 08/15/17 19:17 96 08/15/17 16:00 56 08/15/17 16:00 97.6 66 20 139/89 (106) 97 I/O 08/15/17 08/15/17 08/15/17 08/16/17 08/16/17 08/16/17 07:00 15:00 23:00 07:00 15:00 23:00 Intake Total 720 ml Output Total 900 ml 1100 ml Balance -900 ml -380 ml Intake Oral 720 ml Output Urine Total 900 ml 1100 ml # Voids 1 3 Physical Exam GENERAL: This is a well-nourished, well-developed patient, in no apparent distress. CARDIOVASCULAR: Regular rate and rhythm without murmurs, gallops, or rubs. RESPIRATORY: Clear to auscultation. Breath sounds equal bilaterally. No wheezes , rales, or rhonchi. GASTROINTESTINAL: Abdomen soft, non-tender, nondistended. Normal active bowel sounds MUSCULOSKELETAL: Extremities without clubbing, cyanosis, or edema. NEURO: Alert & Oriented x4 to person, place, time, situation. Moves all ext x4 Imaging Last Impressions Myocardial Perfusion Scan Nuc Med 08/15/17 0000 Signed Impressions: Service Date/Time: Tuesday, August 15, 2017 13:02 - CONCLUSION: Ischemia in the LAD territory. RISK CATEGORY: High (>3%% Annual Mortality Rate) Ron Martino MD Head CT 08/15/17 0000 Signed Impressions: Service Date/Time: Tuesday, August 15, 2017 10:11 - CONCLUSION: Unremarkable study. Ron Martino MD Carotid Artery Ultrasound 08/15/17 0000 Signed Impressions: Service Date/Time: Tuesday, August 15, 2017 08:36 - CONCLUSION: The left vertebral artery is not visualized may be hypoplastic and otherwise unremarkable. Ron Martino MD Chest X-Ray 08/14/17 0000 Signed Impressions: Service Date/Time: Monday, August 14, 2017 18:31 - CONCLUSION: No acute disease. Howie Isabel Jr., MD Assessment and Plan Problem List: (1) Near syncope ICD Codes: R55 - Syncope and collapse Plan: Has resolved w/ hydration, good LV by echo (2) Elevated troponin ICD Codes: R74.8 - Abnormal levels of other serum enzymes Plan: Very slight, but w/ abnl EKG, nuclear stress will ask Interventional cardiology to consider cath. Ian Heck MD Aug 16, 2017 14:19
[2017-08-16] MEDS ORDERED: SODIUM CHLOR 0.9% 1000 ML INJ 1,000 ML IV SCH (18:17)
[2017-08-16] MEDS ORDERED: diphenhydrAMINE HCL 50 MG CAP PO SCH (18:30)
[2017-08-16] MEDS ORDERED: MIDAZOLAM HCL 2 MG/2 ML VIAL IV PUSH SCH (18:30)
[2017-08-16] MEDS: NITROGLYCERIN 2% OINT 1 GM PACKET TOPICAL SCH (18:30)
[2017-08-16] MEDS ORDERED: DIAZEPAM 10 MG TAB PO SCH (18:30)
--- NOTE | 2017-08-16 20:06 | HHI.PR ---
Subjective Remarks NOT SEEN Objective Vitals Vital Signs Date Time Temp Pulse Resp B/P (MAP) Pulse Ox O2 Delivery O2 Flow Rate FiO2 08/16/17 19:15 98.7 71 17 149/83 (105) 96 08/16/17 15:16 98.3 78 18 131/83 (99) 95 08/16/17 11:12 98.3 83 18 126/73 (90) 94 08/16/17 08:52 96 21 08/16/17 07:05 98.4 71 18 144/90 (108) 97 143/107 (119) 143/106 (118) 08/16/17 03:01 98.5 56 17 96/74 (81) 96 08/15/17 22:56 98.3 75 17 110/76 (87) 96 I/O 08/15/17 08/15/17 08/15/17 08/16/17 08/16/17 08/16/17 07:00 15:00 23:00 07:00 15:00 23:00 Intake Total 720 ml Output Total 900 ml 1100 ml Balance -900 ml -380 ml Intake Oral 720 ml Output Urine Total 900 ml 1100 ml # Voids 1 3 Result Diagram: 08/15/17 0735 08/15/17 0735 Imaging Last Impressions Myocardial Perfusion Scan Nuc Med 08/15/17 0000 Signed Impressions: Service Date/Time: Tuesday, August 15, 2017 13:02 - CONCLUSION: Ischemia in the LAD territory. RISK CATEGORY: High (>3%% Annual Mortality Rate) Ron Martino MD Head CT 08/15/17 0000 Signed Impressions: Service Date/Time: Tuesday, August 15, 2017 10:11 - CONCLUSION: Unremarkable study. Ron Martino MD Carotid Artery Ultrasound 08/15/17 0000 Signed Impressions: Service Date/Time: Tuesday, August 15, 2017 08:36 - CONCLUSION: The left vertebral artery is not visualized may be hypoplastic and otherwise unremarkable. oRn Martino MD Chest X-Ray 08/14/17 0000 Signed Impressions: Service Date/Time: Monday, August 14, 2017 18:31 - CONCLUSION: No acute disease. Howie Isabel Jr., MD Objective Remarks GENERAL: Very pleasant middle-aged white male in no acute distress. CARDIOVASCULAR: Regular rate and rhythm. No obvious murmurs to auscultation. No chest tenderness to palpation. RESPIRATORY: No obvious rhonchi or wheezing. Clear to auscultation. Breath sounds equal bilaterally. GASTROINTESTINAL: Abdomen soft, non-tender, nondistended. BS normal. MUSCULOSKELETAL: Extremities without clubbing, cyanosis, or edema. No obvious deformities. NEUROLOGICAL: Awake, alert and oriented x4. No focal neurologic deficits. Moving both upper and lower extremities spontaneously. A/P Problem List: (1) Near syncope ICD Code: R55 - Syncope and collapse (2) Hypotension ICD Code: I95.9 - Hypotension, unspecified (3) Elevated troponin ICD Code: R74.8 - Abnormal levels of other serum enzymes (4) Hypokalemia ICD Code: E87.6 - Hypokalemia (5) Tobacco abuse ICD Code: Z72.0 - Tobacco use Assessment and Plan Near Syncope: Likely secondary to dehydration/hypovolemia. Admit for observation, place on telemetry, IVF for hydration, R/o ACS to eval for possible underlying ischemia. Carotid US normal. Echo normal EF, no valvulopathy Hypotension on admission: BP 70's upon EMS arrival, likely secondary to dehydration, s/p IVF w/ improvement, BP currently 104/75, HR 71. Monitor BP closely. Hold home antihypertensives at this time, will resume once BP stable. Elevated Trop: Initial trop 0.02, repeat trop elevated to 0.06. Trending down 0.04--> 0.02. Possibly due to demand ischemia from hypotension. No c/o chest pain. EKG w/ no acute ischemia. Ct ASA, Statin, hold B-gregoria in light of hypotension. Consult Cardiology , appreciate recommendations. CXR w/ no acute findings, images reviewed by me. Stress test reviewed with LAD territory ischemia , cardiology ff. Consult interventional cardiology for consideration of cardiac cath. Ct asa, statin, BB and NTP 2D ECHO with normal EF 60% Hypokalemia: K+ 3.3, will replace w/ 40mEq K+, recheck labs in am. Tobacco Abuse: Pt counselled. Ativan prn. No NicoDerm to avoid vasoconstriction. DVT Prophylaxis: SCD/Teds. Carlos Alberto Coyle MD Aug 16, 2017 20:06
[2017-08-16] MEDS ORDERED: METOPROLOL TARTRATE 25 MG TAB PO SCH (21:00)
[2017-08-16] MEDS ORDERED: PILL SPLITTER OTHER PRN (21:00)
[2017-08-16] MEDS: traZODone HCL 100 MG TAB PO SCH (21:06)
[2017-08-16] MEDS: QUEtiapine FUMARATE 300 MG TAB PO SCH (21:06)
[2017-08-17] VITALS: PULSE 66
[2017-08-17 02:58] VITALS: BP 124/79; PULSE 59; RESP 17; TEMP 97.7; O2SAT 96
[2017-08-17 04:00] VITALS: PULSE 60
[2017-08-17] MEDS: NITROGLYCERIN 2% OINT 1 GM PACKET TOPICAL SCH ×2 (06:00)
[2017-08-17] MEDS ORDERED: MIDAZOLAM HCL 2 MG/2 ML VIAL ONE (07:07)
[2017-08-17] MEDS ORDERED: HEPARIN-NS/PF INJ 1,000 ML ONE (07:07)
[2017-08-17] MEDS ORDERED: HEPARIN SODIUM - IV 10,000 UNITS/10 ML VIAL ONE (07:07)
[2017-08-17] MEDS ORDERED: SODIUM CHLOR 0.9% 1000 ML INJ 1,000 ML IV ONE (07:36)
--- NOTE | 2017-08-17 07:43 | CATHPROC ---
[facility] HIS Report Study Information Study Number Admission Scheduled Start Study Start [id number] Aug 14 2017 6:49PM 08/16/2017 Aug 17 2017 6:48AM [facility] Cardiac Catheterization Admit Source Facility Department Emergency department [facility] - Regulatory Consultant Physician and Clinical Staff Initial Charlie Palacio Cdl B Driver Martha Dash,JAKUB Cdl B Driver Phuc Lane RN cathlab, cathlab Recorder Eloise Huber,CUSTOMER RESPONSE REPRESENTATIVE TECH2 Scrub Behzad Pearson RCIS(BS) Procedures Performed Procedure Location (Site) Vessel Name Angiogram LV LV Ventricle Coronary Angiograms LCA Left Coronary Coronary Angiograms RCA Right Coronary L Heart Cath Equipment Time Clinical Quality Assurance Associate Description Size Mfg Part Number Used/Scraped TRANSDUCER, TRUWAVE [id number] 07:06 REYES ANN * Used W/STOCKCOCK *[id number] 07:34 scanR MEDICAL VASCADE, FR6 CLOSURE SYSTEM FR 6\7 Used *[id number] *[id number] [id number] *[id number] [id number] *[id number] 07:06 [employer] PACK, CCL CUSTOM * Used *[id number] 07:06 [employer] PACER PEN, SKIN DUAL W/ RULER * Used *[id number] 07:06 [employer] MEDICAL SHEATH, FR6.5 PRELUDE 11CM FR 6.5 038ACT Used *[id number] 07:06 [employer] MEDICAL WIRE, 3MMJ .035 180CM 180CM Used *[id number] 07:06 NAMIC MANIFOLD, 4 PORT * Used *[id number] 07:29 [employer] OMNIPAQUE, 300 MG, 50ML 50ML [id number] Used 07:06 [employer] OMNIPAQUE, 350 MG, 150ML 150ML [id number] Used [id number] 07:06 [employer] BLANKET,WARM AIR CCL * Used *[id number] History: Allergies Allergy Reaction No Known Allergies History: Risk Factors Hypertension Dyslipidemia Yes Yes Chronic Lung Diabetes Diabetes Therapy Disease History: Stress Tests Stress or Imaging Studies Performed Yes Standard Exercise Stress Test No Stress Echo No Stress Test SPECT No Stress Test CMR Stress Test CMR Result Stress Test CMR Ischemia Risk/Extent Yes Positive High Cardiac CTA Coronary Calcium Score No No History: Other Current Smoker Method Packs a Day Years Used Pack Years Yes Cigarettes 1 30 30 Labs Hgb (g/dl) Hct (%) WBC (l/cumm) Platelets (thousands) 11.60-17.00 35.00-51.00 4.00-11.00 150.00-450.00 14.9 42.4 9.6 267 Glucose (mg/dl) BUN (mg/dl) Creatinine (mg/dl) BUN:Creatinine (1:x) 74.00-106.00 7.00-18.00 0.50-1.30 10.00-20.00 90 13 0.9 14.4 Na (meq/l) K (meq/l) 136.00-145.00 3.50-5.10 142 4.3 Troponin I (ng/ml) 0.02-0.05 0.06 Medication Medication Total Dose (Bolus/Oral) Medication Total Dosage/Unit 1% XYLOCAINE 20 mL VERSED 2 mg Medications (Bolus/Oral) Medication Time Given Dosage/Unit Administered By Reason VERSED 08/17/2017 7:22:41 AM 2 mg Martha Dash 2 mg VERSED given in lab by Martha Dash RN in Right Antecubital via Peripheral IV. Ordered by Charlie Urias. 1% XYLOCAINE 08/17/2017 7:24:11 AM 20 mL Charlie Gomes 20 mL 1% XYLOCAINE given in lab by Charlie Gomes in Right Groin via Subcutaneous. Ordered by Inderjit Gomes. Medication (Drip) Medication Time Given Dosage/Unit Concentration/Unit Diluent (ml) Solutio n IV Solutions 08/17/2017 7:04:16 AM 0 mL (IV) 1000 NaCl .9 IV Solutions given in lab by Phuc Lane RN in Right Antecubital via Peripheral IV. Pump/Drip Flow = 20 ml/hr using NaCl .9. Ordered by Charlie Gomes. Initial Case Assessment Cardiovascular HR NIBP 73 135/99 Edema Present Skin color Skin None Normal Warm Dry Neurological State Oriented to time-place- Alert Moves all extremities person Respiration - General Respiration Rate SpO2 (%) (B/min) 14 94 Final Case Assessment Cardiovascular HR NIBP 73 122/78 Edema Present Skin color Skin None Normal Warm Dry Neurological State Oriented to time-place- Alert Moves all extremities person Respiration - General Respiration Rate SpO2 (%) (B/min) 14 93 Chronological Log Time Study Chronological Log 7:02:03 Patient arrived via Bed. 7:02:05 Patient Name, D.O.B, / Armband Verified By R.N. 7:02:06 Consent signed by the physician and the patient and verified by the Regulatory Consultant staff. 7:03:58 Patient has been NPO for More than 6Hrs. 7:04:06 NO Skin Breakdown- 7:04:07 Patient Warmer Placed on the Table. 7:04:11 Nelly Prominences Protected 7:04:15 A # 20 IV was noted in the Antecubital (left). Grade = 0 IV Solutions given in lab by Phuc Lane RN in Right Antecubital via Peripheral IV. Pump/Drip Flow = 20 ml/hr using 7:04:16 NaCl .9. Ordered by Charlie Gomes. 7:04:17 History and physical on the chart or being dictated. Vitals capture started with the following parameters, Patient=Adult, Interval=5 min, Initial Pr dvkdlk=065 mmHg, 7:06:45 Deflation Rate=5 mmHg, Cuff placed on Left Arm 7:07:15 HR=73 bpm, HWSU=894/99 mmhg, SpO2=94.0 %, Resp=14 B/min, Pain=0, Brad=10, Melchor=2 Assessment: Initial Case, HR=73 BPM, OMCN=719/99 mmhg, Edema=None, Color=Normal, Skin = Warm, D ry 7:07:58 Neurological: State=Alert, Ox3, LIRIANO Respiration: Resp=14 B/min, SpO2=94 % 7:09:08 Reference ECG taken 7:11:23 Presedation assessment performed by Regulatory Consultant RN. 7:12:18 HR=69 bpm, CYHH=497/91 mmhg, SpO2=94 %, Resp=14 B/min, Pain=0, Brad=10, Melchor=2 7:14:50 Bilateral groins prepped with 2% chlorhexidine, and draped after a 3 minute waiting time. 7:17:23 HR=70 bpm, KPBA=181/98 mmhg, SpO2=94.0 %, Resp=11 B/min, Pain=0, Brad=10, Melchor=2 7:17:28 Pressure channel 1 zeroed. 7:22:18 HR=75 bpm, QKVU=923/93 mmhg, SpO2=93.0 %, Resp=14 B/min, Pain=0, Brad=10, Melchor=2 7:22:41 2 mg VERSED given in lab by Martha Dash, RN in Right Antecubital via Peripheral IV. Order ed by Charlie Gomes. Time Out. Correct patient, correct procedure, correct physician, power injector not loaded with contrast with surgical 7:23:49 team present. Time Out Concurred by MD and individual staff in procedure. 7:24:08 Case Start 7:24:11 20 mL 1% XYLOCAINE given in lab by Charlie Gomes in Right Groin via Subcutaneous. Ordered by Charlie Gomes. 7::46 Access site was Right Femoral Artery. 7::56 A SHEATH, FR6.5 PRELUDE 11CM FR 6.5 was advanced into the Fem Art (right) using the Modified Seldinger technique. A JL 4.0 INFINITI CATHETER FR 6 was advanced over a wire. OMNIPAQUE, 350 MG, 150ML 150ML was use d for 7:26:02 injections. Recorded Pressure: Ao, HR=76, Condition=Condition 1 7:26:44 (Aorta) Ao 135/85/106 7:26:47 The LCA was injected and visualized at various angles. OMNIPAQUE, 350 MG, 150ML 150ML used. 7:27:26 HR=77 bpm, LSNK=098/82 mmhg, SpO2=92 %, Resp=13 B/min, Pain=0, Brad=10, Melchor=2 7::56 Catheter was removed A 3DRC INFINITI CATHETER FR 6 was advanced over a wire. OMNIPAQUE, 350 MG, 150ML 150ML was used for 7:27:59 injections. 7:28:29 The RCA was injected and visualized at various angles. OMNIPAQUE, 350 MG, 150ML 150ML used. 7:28:52 Catheter was removed A PIGTAIL STR INFINITI CATHETER FR 6 was advanced over a wire. OMNIPAQUE, 300 MG, 50ML 50ML was used for 7:29:02 injections. 7:29:31 LV INJECTOR LOADED WITH CONTRAST AND VERIFIED TO BE FREE OF AIR BY MARTHA DASH, RN Recorded Pressure: LV, HR=84, Condition=Condition 1 7:29:50 (Left Ventricle) LV 145/7/13 7:30:31 Case End 7:30:55 The LV was injected at 12 cc/sec for a total of 40. OMNIPAQUE, 300 MG, 50ML 50ML used. Recorded Pressure: LV, Ao, HR=82, Condition=Condition 1 7:31:12 (Left Ventricle) LV 142/11/12, (Aorta) Ao 130/70/94 7:32:23 HR=80 bpm, PIHN=038/90 mmhg, SpO2=92 %, Resp=13 B/min, Pain=0, Brad=10, Melchor=2 7:32:54 An injection in the Fem Art (right) was made through the SHEATH, FR6.5 PRELUDE 11CM FR 6.5. 7:33:05 VASCADE, FR6 CLOSURE SYSTEM FR 6\7 placement in the Fem Art (right) 7:37:22 HR=75 bpm, VCNH=663/89 mmhg, SpO2=92 %, Resp=13 B/min, Pain=0, Brad=10, Melchor=2 7:42:00 No case complications noted. 7:42:02 Cine recording checked. 7:42:05 Bedside Report will be given. 7:42:09 A Left Heart Cath was performed. 7:42:27 HR=75 bpm, OUBX=229/78 mmhg, SpO2=93.0 %, Resp=15 B/min, Pain=0, Brad=10, Melchor=2 Assessment: Final Case, HR=73 BPM, QMCG=195/78 mmhg, Edema=None, Color=Normal, Skin = Warm, Dr y 7:42:30 Neurological: State=Alert, Ox3, LIRIANO Respiration: Resp=14 B/min, SpO2=93 % 7:42:32 Vitals capture stopped. 7:43:13 Patient moved to stretcher End Study - Contrast Media Used In Study Contrast Total Opened (mL) Total Used (mL) Total Wasted (mL) Omnipaque 60 60 0 End Study - Maximum Contrast Load Max Contrast Load (mL) 555.6 End Study - Radiation Exposure Fluoro Time (minutes) 1.2 End Study - Patient Disposition Complications Transferred To Telemetry Bed
[2017-08-17] MEDS ORDERED: ONDANSETRON HCL 4 MG/2 ML VIAL IV PUSH PRN (07:45)
[2017-08-17] MEDS ORDERED: SODIUM CHLOR 0.9% 250 ML INJ 250 ML IV PRN (07:45)
[2017-08-17] MEDS ORDERED: ATROPINE SULFATE 1 MG/ML VIAL IVP PRN (07:45)
[2017-08-17] MEDS ORDERED: METO25TA3 PO (08:06)
[2017-08-17] MEDS ORDERED: HYDR-3516 PO (08:06)
--- NOTE | 2017-08-17 08:06 | HHI.DCPOC ---
Discharge Care Plan Diagnosis: (1) Near syncope Your Health Problems Are: Difficulty with ADL Exercise Tolerance Goals to Promote Your Health * To prevent worsening of your condition and complications * To maintain your health at the optimal level Directions to Meet Your Goals Take your medications as prescribed Follow your dietary instruction Follow activity as directed Keep your appointments as scheduled Take your immunizations and boosters as scheduled If your symptoms worsen call your PCP, if no PCP go to Urgent Care Center or Emergency Room Smoking is Dangerous to Your Health. Avoid second hand smoke Call the 24-hour hour crisis hotline for domestic abuse at Carlos Alberto Coyle MD Aug 17, 2017 08:06
--- NOTE | 2017-08-17 09:18 | MB ---
cc: CESAR GOLD M.D. DATE OF CONSULTATION 08/17/2017 REASON FOR CONSULTATION Cardiac catheterization. HISTORY OF PRESENT ILLNESS The patient is a 61-year-old white male with a history of asthma, hyperlipidemia, hypertension, hepatitis C, status post interferon treatment, who presented to the hospital mainly with complaints of chest pain as well as near-syncope. The patient states in the last couple of weeks he has had intermittent episodes of sharp left parasternal chest pain usually lasting a few minutes. In addition he notes infrequent episodes of substernal chest "pressure" with no definitive relationship to exertion. On the day of admission he had a near-syncopal episode apparently associated with hypotension. He never lost consciousness. With intravenous fluid hydration his symptoms resolved. Troponin levels were checked and found to be slightly abnormal. A nuclear stress test was obtained showing anterior ischemia. The patient denies any chest pain this morning. He also denies pleurisy, palpitations, pedal edema, paroxysmal nocturnal dyspnea. PAST MEDICAL HISTORY 1. Asthma. 2. Hyperlipidemia. 3. Hypertension. 4. Hepatitis C. 5. History of intracerebral aneurysm, status post neurosurgery February 2016. MEDICATIONS His cardiac medications at home: 1. Lisinopril 20 mg q. day. 2. Clonidine 0.1 mg q. day. ALLERGIES No known drug allergies. FAMILY HISTORY There is no significant family history of early myocardial infarction. SOCIAL HISTORY The patient smokes about a pack of cigarettes per day. He is a recovering alcoholic. REVIEW OF SYSTEMS As in the history of present illness, otherwise negative or noncontributory. PHYSICAL EXAMINATION VITAL SIGNS: On physical examination his blood pressure is 120/80 with a pulse of 60, respirations 15. GENERAL: In general he is a well-developed, well-nourished white male in no acute distress. HEENT/NECK: Jugular venous pressure is normal. Carotid pulses are 2+ bilaterally and without bruits. CHEST: Examination of the chest reveals clear lung patel anteriorly. CARDIAC: On cardiac examination he has a regular rhythm and rate without S3, S4, or murmur. ABDOMEN: On abdominal examination he has a soft, nontender abdomen. Bowel sounds are present. There is no definite hepatosplenomegaly. EXTREMITIES: Examination of the extremities reveals no clubbing, cyanosis or edema. Peripheral pulses are normal throughout. EKG EKG shows sinus tachycardia, possible inferior infarct age undetermined, right ventricular conduction delay. LABORATORY Laboratory data includes WBC 9.6, hemoglobin 14.9, platelets 267, potassium 4.3, BUN 13, creatinine 0.97, troponin 0.06, total cholesterol 203, LDL 123, HDL 31, triglycerides 244. IMPRESSION Abnormal nuclear stress test, somewhat atypical symptoms for myocardial ischemia in this 61-year-old white male with a history of hypertension, hyperlipidemia, asthma, hepatitis C. I have been asked to see the patient for possible cardiac catheterization. His nuclear stress test pictures have been reviewed. I would agree with the interpretation that there is anterior ischemia in a moderate-sized territory. I would also agree that the nuclear stress test findings are intermediate to high risk. In light of these findings I would agree with the need for cardiac catheterization. The nature of this procedure and potential risks have been outlined to the patient who agrees to proceed. RECOMMENDATIONS Cardiac catheterization on 08/17/2017. MD DARIAN Isabel/ZAFAR /7:42 AM /9:07 AM EDGAR
--- NOTE | 2017-08-17 09:22 | MA ---
cc: CESAR GOLD M.D. DATE 08/17/2017 PROCEDURE 1. Left heart catheterization. 2. Selective coronary angiography. 3. Left ventriculography. PROCEDURE NOTE The patient was brought to the cardiac catheterization laboratory in a fasting state after having signed informed consent. The right groin was prepped and draped as per policy and anesthetized with 1% lidocaine. Arterial access was obtained via the right femoral artery and a 6 Zimbabwean sheath placed. Coronary arteriography was performed using a 6 [place]an Francisco J left 4.0 and right progressive catheters. Left ventriculography was done using a standard 6 [place]an pigtail. There were no apparent immediate complications. HEMODYNAMIC DATA Left ventricle 125 with an end-diastolic pressure of 13. Aorta 130/76 with a mean of 96. There was no significant transvalvular aortic gradient on pullback of the pigtail catheter. CORONARY ARTERIOGRAPHY The left main is normal. The left anterior descending gives rise to a medium-sized diagonal which is free of disease. The proximal LAD has diffuse minimal luminal irregularities. The mid to distal LAD is normal. The left circumflex is a medium-sized vessel giving rise to a medium-sized obtuse marginal. No disease is seen in the left circumflex system. The right coronary artery is a medium-sized dominant vessel with 15% stenosis proximally. LEFT VENTRICULOGRAPHY Contrast injection of the left ventricle reveals no segmental wall motion abnormalities. Ejection fraction is estimated at 60%. CONCLUSIONS 1. Minimal coronary artery disease. 2. Normal left ventricular function with estimated ejection fraction of 60%. MD DARIAN Isabel/ZAFAR /7:48 AM /9:15 AM EDGAR
[2017-08-17] MEDS ORDERED: CLON0.1T PO (10:38)
--- NOTE | 2017-08-17 10:39 | HHI.DS ---
Discharge Summary Admission Date Aug 14, 2017 at 18:49 Discharge Date: Aug 17, 2017 Admitting Diagnosis chest pain (1) Near syncope ICD Code: R55 - Syncope and collapse Diagnosis: Principal (2) Hypotension ICD Code: I95.9 - Hypotension, unspecified Diagnosis: Principal (3) Elevated troponin ICD Code: R74.8 - Abnormal levels of other serum enzymes Diagnosis: Principal (4) Hypokalemia ICD Code: E87.6 - Hypokalemia Diagnosis: Principal (5) Tobacco abuse ICD Code: Z72.0 - Tobacco use Diagnosis: Principal Procedures Cardiac catheterization Brief History - From Admission This is a 61-year-old male with a PMH of Anxiety, Depression, HTN, Hyperlipidemia, Hepatitis C, h/o Cerebral Aneurysm s/p Clipping, h/o Alcohol Abuse in Remission and Tobacco Abuse who was brought to the ER after near syncopal event. Pt states he was having lunch when he had sudden episode of intense lightheadedness/dizziness followed by near syncopal event. No h/o similar symptoms. BP 70's systolic upon EMS arrival w/ improvement after IVF. Per pt he lives in a residential house w/ 7 other residents who have all been sick lately w/ cold-type symptoms. Denies fever, chills, cough or chest pain. On arrival, BP 118/76, HR 104, O2 sat 98% on 2L NC, Afebrile. CBC essentially unremarkable. K+ 3.3. GFR 66. Troponin 0.02, repeat troponin 0.06. No complaints of chest pain. UA negative. CXR with no acute findings. CBC/BMP: 08/15/17 0735 08/15/17 0735 Significant Findings Laboratory Tests Test 08/14/17 14:15 08/14/17 15:35 08/14/17 17:15 08/15/17 01:20 Red Blood Count 4.47 MIL/MM3 (4.50-5.90) Random Glucose 185 MG/DL (74-106) Total Protein 5.9 GM/DL (6.4-8.2) Calcium Level 7.6 MG/DL (8.5-10.1) Potassium Level 3.3 MEQ/L (3.5-5.1) Chloride Level 108 MEQ/L (98-107) Estimat Glomerular Filtration Rate 66 ML/MIN (>89) Troponin I LESS THAN 0.02 NG/ML 0.06 NG/ML (0.02-0.05) Urine Mucus FEW /lpf (OCC) Urine Sperm RARE (NONE) Test 08/15/17 07:35 Total Protein 6.2 GM/DL (6.4-8.2) Chloride Level 112 MEQ/L (98-107) Estimat Glomerular Filtration Rate 79 ML/MIN (>89) Troponin I LESS THAN 0.02 NG/ML Triglycerides Level 244 MG/DL (42-150) Cholesterol Level 203 MG/DL (120-200) LDL Cholesterol 123 MG/DL (0-99) HDL Cholesterol 30.8 MG/DL (40.0-60.0) Imaging Last Impressions Myocardial Perfusion Scan Nuc Med 08/15/17 0000 Signed Impressions: Service Date/Time: Tuesday, August 15, 2017 13:02 - CONCLUSION: Ischemia in the LAD territory. RISK CATEGORY: High (>3%% Annual Mortality Rate) Ron Martino MD Head CT 08/15/17 0000 Signed Impressions: Service Date/Time: Tuesday, August 15, 2017 10:11 - CONCLUSION: Unremarkable study. Ron Martino MD Carotid Artery Ultrasound 08/15/17 0000 Signed Impressions: Service Date/Time: Tuesday, August 15, 2017 08:36 - CONCLUSION: The left vertebral artery is not visualized may be hypoplastic and otherwise unremarkable. Ron Martino MD Chest X-Ray 08/14/17 0000 Signed Impressions: Service Date/Time: Monday, August 14, 2017 18:31 - CONCLUSION: No acute disease. Howie Isabel Jr., MD PE at Discharge GENERAL: Very pleasant middle-aged white male in no acute distress. CARDIOVASCULAR: Regular rate and rhythm. No obvious murmurs to auscultation. No chest tenderness to palpation. RESPIRATORY: No obvious rhonchi or wheezing. Clear to auscultation. Breath sounds equal bilaterally. GASTROINTESTINAL: Abdomen soft, non-tender, nondistended. BS normal. MUSCULOSKELETAL: Extremities without clubbing, cyanosis, or edema. No obvious deformities. NEUROLOGICAL: Awake, alert and oriented x4. No focal neurologic deficits. Moving both upper and lower extremities spontaneously. Hospital Course Near Syncope: Likely secondary to dehydration/hypovolemia. Received IVF for hydration and ruled out for ACS. Carotid US normal. Echo normal EF, no valvulopathy Hypotension on admission: BP 70's upon EMS arrival, likely secondary to dehydration, s/p IVF w/ improvement, BP improved. Monitor BP closely. Restart clonidine to avoid rebound hypertension. Advised to taper clonidine over time to follow up with PCP. If additional BP medication needed after maximizing beta gregoria, may restart lisinopril. Elevated Trop with abnormal stress test. Cardiac catheterization with nonobstructive CAD involving LAD and RCA. Ct ASA, Statin and beta gregoria. Risk factor modifications. Chest pain could have been from asthma. Doubt PE patient not hypoxic Hypokalemia: Repleted Tobacco Abuse: Pt counselled. Ativan prn. No NicoDerm to avoid vasoconstriction. DVT Prophylaxis: SCD/Teds. Pt Condition on Discharge: Stable Discharge Disposition: Discharge Home Discharge Time: > 30 minutes Discharge Instructions DIET: Follow Instructions for: Heart Healthy Diet Activities you can perform: Regular-No Restrictions Activities to Avoid: Driving Follow up Referrals: Cardiology - 1 Week PCP Follow-up - 1 Week New Medications: Albuterol 18 GM Inh (Ventolin Hfa 18 GM Inh) 90 Mcg/Act Aer 2 PUFF INH Q4-6H PRN for SHORTNESS OF BREATH, #1 INHALER [address] (Aspirin DR) 81 Mg Tabdr 81 MG PO DAILY for Blood Clot Prevention, #30 TAB Hydrocodone/Acetaminophen (Hydrocodone-Acetamin 5-325 mg) 5 Mg-325 Mg Tablet 1 TAB PO Q4H PRN for pain, #20 TAB Metoprolol Tartrate (Metoprolol Tartrate) 25 Mg Tab 12.5 MG PO Q12HR for Blood Pressure Management, #60 TAB Pravastatin (Pravachol) 40 Mg Tab 40 MG PO DAILY for Cholesterol Management, #30 TAB [Budeson-Formot 160-4.5 Mcg Inh] () 60 PUFF AERO 2 PUFF INH Q12HR for COPD, #1 INHALER Changed Medications: Clonidine (Clonidine) 0.1 Mg Tab 0.1 MG PO DAILY for Blood Pressure Management, #60 TAB 0 Refills (Medication details modified) taper in 3 days after discussion with PCP Continued Medications: Quetiapine (Seroquel) 300 Mg Tab 300 MG PO HS, #30 TAB 0 Refills Trazodone (Trazodone) 100 Mg Tablet 100 MG PO HS for Control Depression, #30 TAB 0 Refills Discontinued Medications: Lisinopril (Lisinopril) 20 Mg Tab 20 MG PO DAILY, #30 TAB 0 Refills Carlos Alberto Coyle MD Aug 17, 2017 10:39
== END 2017-08-17 11:05 | disposition home or self-care (01) ==
LOC: NEPC 14:02 → NEDA 18:49 → NEPGCP 20:22 → HCIS 08-17 07:27
PROVIDERS: ADMIT Internal Medicine; ATTEND Internal Medicine
DX: R55 Syncope and collapse (principal); I95.9 Hypotension, unspecified; R74.8 Abnormal levels of other serum enzymes; E87.6 Hypokalemia; F17.210 Nicotine dependence, cigarettes, uncomplicated; I10 Essential (primary) hypertension; F10.21 Alcohol dependence, in remission; E78.5 Hyperlipidemia, unspecified; I67.1 Cerebral aneurysm, nonruptured; F41.9 Anxiety disorder, unspecified; F32.9 Major depressive disorder, single episode, unspecified; B19.20 Unspecified viral hepatitis C without hepatic coma; E86.1 Hypovolemia; E86.0 Dehydration; I25.10 Atherosclerotic heart disease of native coronary artery without angina pectoris; R61 Generalized hyperhidrosis; Z86.79 Personal history of other diseases of the circulatory system; M19.90 Unspecified osteoarthritis, unspecified site; J44.9 Chronic obstructive pulmonary disease, unspecified; Z79.899 Other long term (current) drug therapy; R00.0 Tachycardia, unspecified; R51 Headache; R94.31 Abnormal electrocardiogram [ECG] [EKG]
CPT/HCPCS: 70450; 71045; 78452; 80053; 80061; 81001; 82948; 83036; 84443; 84484; 85025; 93005; 93017; 93306; 93458; 93880; 94640; 94664; 96360; 96361; 97161; 99152; 99285; A9502; C1760; C1769; C1893; G0269; G0378; G8987; G8988; J1644; J1815; J2250; J2785; J7030; Q9967